=== PATIENT | female | born 1965 | race Two or more races ===

== ENCOUNTER → 2017-06-27 | Outpatient (CLI) | payer OTHER ==
[~2017-06-27] MED LIST: NABUMETONE750 MG PO
== END | disposition home or self-care (01) ==
LOC: MAMO-SONO 10:03
DX: N60.19 Diffuse cystic mastopathy of unspecified breast (principal); Z12.31 Encounter for screening mammogram for malignant neoplasm of breast

== ENCOUNTER → 2017-10-29 | Outpatient (CLI) | payer OTHER | END | disposition home or self-care (01) | LOC: LAB 08:13 | DX: E03.9 Hypothyroidism, unspecified (principal) ==

== ENCOUNTER 2018-01-15 07:16 | Outpatient (CLI) | payer OTHER | END 2018-01-15 08:24 | disposition home or self-care (01) | LOC: LAB 07:16 | DX: M05.79 Rheumatoid arthritis with rheumatoid factor of multiple sites without organ or systems involvement (principal); M15.0 Primary generalized (osteo)arthritis; E78.2 Mixed hyperlipidemia; E03.8 Other specified hypothyroidism ==

== ENCOUNTER 2018-03-26 09:36 | Outpatient (CLI) | payer OTHER | END 2018-03-26 10:08 | disposition home or self-care (01) | LOC: LAB 09:36 | DX: M06.80 Other specified rheumatoid arthritis, unspecified site (principal) ==

== ENCOUNTER 2018-04-01 07:52 | Outpatient (CLI) | payer OTHER | END 2018-04-01 08:41 | disposition home or self-care (01) | LOC: LAB 07:52 | DX: M06.00 Rheumatoid arthritis without rheumatoid factor, unspecified site (principal) ==

== ENCOUNTER 2018-04-05 09:47 | Outpatient (CLI) | payer OTHER ==
[2018-04-06] MEDS ORDERED: SYNTHROID50 MCG (15:47)
[2018-04-06] MEDS ORDERED: METHOTREXATE2.5 MG (15:48)
== END 2018-04-05 09:51 | disposition home or self-care (01) ==
LOC: SONOGRAMA 09:47
DX: R10.2 Pelvic and perineal pain (principal); R10.84 Generalized abdominal pain

== ENCOUNTER 2018-04-06 15:40 | Emergency (ER) | payer OTHER ==
[~2018-04-06] VITALS: Ht 172.7 cm; Wt 86.2 kg
[2018-04-06] MEDS ORDERED: SYNTHROID50 MCG (15:47)
[2018-04-06] MEDS ORDERED: METHOTREXATE2.5 MG (15:48)
== END 2018-04-06 19:27 | disposition home or self-care (01) ==
LOC: ER 15:40
DX: N83.292 Other ovarian cyst, left side (principal); R10.31 Right lower quadrant pain

== ENCOUNTER → 2018-04-26 07:25 | Outpatient (CLI) | payer OTHER ==
[~2018-04-26 07:25] MED LIST changes: +METHOTREXATE2.5 MG; +SYNTHROID50 MCG
== END | disposition home or self-care (01) ==
LOC: LAB 07:25
DX: E03.8 Other specified hypothyroidism (principal); R10.13 Epigastric pain

== ENCOUNTER → 2018-06-18 | Outpatient (CLI) | payer OTHER | END | disposition home or self-care (01) | LOC: LAB 08:11 | DX: M05.79 Rheumatoid arthritis with rheumatoid factor of multiple sites without organ or systems involvement (principal); R10.10 Upper abdominal pain, unspecified; E78.49 Other hyperlipidemia ==

== ENCOUNTER 2018-07-13 08:02 | Emergency (ER) | payer OTHER | END 2018-07-13 13:19 | disposition home or self-care (01) | LOC: ER 08:02 → EMR PED 08:05 → ER 08:05 → EMR PED 13:19 | DX: K52.89 Other specified noninfective gastroenteritis and colitis (principal) ==

== ENCOUNTER 2018-08-05 13:14 | Outpatient (CLI) | payer OTHER | END 2018-08-05 14:32 | disposition home or self-care (01) | LOC: LAB 13:14 | DX: Z11.3 Encounter for screening for infections with a predominantly sexual mode of transmission (principal) ==

== ENCOUNTER 2018-08-22 07:56 | Outpatient (CLI) | payer OTHER | END 2018-08-22 16:03 | disposition home or self-care (01) | LOC: LAB 07:56 | DX: M05.79 Rheumatoid arthritis with rheumatoid factor of multiple sites without organ or systems involvement (principal); M25.50 Pain in unspecified joint; E03.8 Other specified hypothyroidism ==

== ENCOUNTER → 2018-10-10 | Outpatient (CLI) | payer OTHER | END | disposition home or self-care (01) | LOC: LAB 10:04 | DX: Z01.84 Encounter for antibody response examination (principal) ==

== ENCOUNTER 2018-10-15 07:56 | Outpatient (CLI) | payer OTHER | END 2018-10-15 15:00 | disposition home or self-care (01) | LOC: LAB 07:56 | DX: R80.8 Other proteinuria (principal); M25.50 Pain in unspecified joint; M05.79 Rheumatoid arthritis with rheumatoid factor of multiple sites without organ or systems involvement; N39.0 Urinary tract infection, site not specified ==

== ENCOUNTER 2018-10-15 10:53 | Outpatient (CLI) | payer OTHER | END 2018-10-15 17:00 | disposition home or self-care (01) | LOC: SONOGRAMA 10:53 | DX: R80.8 Other proteinuria (principal); M05.79 Rheumatoid arthritis with rheumatoid factor of multiple sites without organ or systems involvement ==

== ENCOUNTER → 2018-10-21 | Outpatient (CLI) | payer OTHER | END | disposition home or self-care (01) | LOC: NUCLEAR 15:23 | DX: I82.409 Acute embolism and thrombosis of unspecified deep veins of unspecified lower extremity (principal) ==

== ENCOUNTER 2018-11-06 15:20 | Outpatient (CLI) | payer OTHER | END 2018-11-06 15:22 | disposition home or self-care (01) | LOC: MRI 15:20 | DX: M54.5 Low back pain (principal); M54.17 Radiculopathy, lumbosacral region | CPT/HCPCS: 72148 ==

== ENCOUNTER → 2018-12-23 11:56 | Outpatient (CLI) | payer OTHER | END | disposition home or self-care (01) | LOC: LAB 11:56 | DX: M05.79 Rheumatoid arthritis with rheumatoid factor of multiple sites without organ or systems involvement (principal); M15.0 Primary generalized (osteo)arthritis; M25.50 Pain in unspecified joint ==

== ENCOUNTER → 2018-12-25 | Outpatient (CLI) | payer OTHER | END | disposition home or self-care (01) | LOC: MRI 12:15 | DX: M54.2 Cervicalgia (principal) | CPT/HCPCS: 72141 ==

== ENCOUNTER 2019-01-29 07:10 | Outpatient (CLI) | payer OTHER | END 2019-01-29 07:43 | disposition home or self-care (01) | LOC: LAB 07:10 | DX: E03.8 Other specified hypothyroidism (principal) ==

== ENCOUNTER → 2019-03-16 | Outpatient (CLI) | payer OTHER | END | disposition home or self-care (01) | LOC: MAMO-SONO 13:28 | DX: Z12.31 Encounter for screening mammogram for malignant neoplasm of breast (principal); Z87.898 Personal history of other specified conditions; Z12.39 Encounter for other screening for malignant neoplasm of breast ==

== ENCOUNTER 2019-03-31 07:04 | Outpatient (CLI) | payer OTHER | END 2019-03-31 14:38 | disposition home or self-care (01) | LOC: LAB 07:04 | DX: M05.79 Rheumatoid arthritis with rheumatoid factor of multiple sites without organ or systems involvement (principal); R10.84 Generalized abdominal pain ==

== ENCOUNTER 2019-06-05 15:57 | Outpatient (CLI) | payer OTHER | END 2019-06-05 16:02 | disposition home or self-care (01) | LOC: LAB 15:57 | DX: E03.8 Other specified hypothyroidism (principal) ==

== ENCOUNTER → 2019-07-27 14:45 | Outpatient (CLI) | payer OTHER | END | disposition home or self-care (01) | LOC: LAB 14:45 | DX: M05.79 Rheumatoid arthritis with rheumatoid factor of multiple sites without organ or systems involvement (principal); M25.50 Pain in unspecified joint; E55.9 Vitamin D deficiency, unspecified ==

== ENCOUNTER 2019-08-03 07:15 | Outpatient (CLI) | payer OTHER | END 2019-08-03 07:25 | disposition home or self-care (01) | LOC: LAB 07:15 | DX: M83.8 Other adult osteomalacia (principal); E03.8 Other specified hypothyroidism ==

== ENCOUNTER 2019-08-10 15:45 | Outpatient (CLI) | payer OTHER | END 2019-08-10 15:49 | disposition home or self-care (01) | LOC: LAB 15:45 | DX: J22 Unspecified acute lower respiratory infection (principal) ==

== ENCOUNTER → 2019-09-17 | Emergency (ER) | payer OTHER ==
[~2019-09-17] VITALS: Ht 172.7 cm; Wt 81.6 kg
[~2019-09-17] MED LIST changes: +HYDROXYCHLOROQ200 MG
== END | disposition home or self-care (01) ==
LOC: ER 15:33
DX: J06.9 Acute upper respiratory infection, unspecified (principal); Z03.818 Encounter for observation for suspected exposure to other biological agents ruled out

== ENCOUNTER → 2019-10-12 17:34 | Outpatient (CLI) | payer OTHER | END | disposition home or self-care (01) | LOC: LAB 17:34 | DX: E03.8 Other specified hypothyroidism (principal) ==

== ENCOUNTER 2019-10-22 07:39 | Outpatient (CLI) | payer OTHER | END 2019-10-22 14:09 | disposition home or self-care (01) | LOC: LAB 07:39 | DX: M05.79 Rheumatoid arthritis with rheumatoid factor of multiple sites without organ or systems involvement (principal); M25.50 Pain in unspecified joint ==

== ENCOUNTER 2019-11-16 09:28 | Outpatient (CLI) | payer OTHER | END 2019-11-16 09:37 | disposition home or self-care (01) | LOC: LAB 09:28 | PROVIDERS: ATTEND General Practice | DX: K92.1 Melena (principal) ==

== ENCOUNTER → 2019-11-18 11:28 | Outpatient (CLI) | payer OTHER | END | disposition home or self-care (01) | LOC: LAB 11:28 | PROVIDERS: ATTEND General Practice | DX: R10.84 Generalized abdominal pain (principal) ==

== ENCOUNTER → 2019-12-01 | Outpatient (CLI) | payer OTHER | END | disposition home or self-care (01) | LOC: RX STUDY 08:00 | PROVIDERS: ATTEND Internal Medicine Gastroenterology | DX: R13.19 Other dysphagia (principal) ==

== ENCOUNTER 2020-01-18 13:15 | Outpatient (CLI) | payer OTHER | END 2020-01-18 15:00 | disposition home or self-care (01) | LOC: LAB 13:15 | DX: R05 Cough (principal) ==

== ENCOUNTER → 2020-01-19 | Outpatient (CLI) | payer OTHER ==
[~2020-01-19] MED LIST changes: +FAMOTIDINE20 MG PO; +FOLIC ACID1 MG PO; +PANTOPRAZOLE SO40 MG PO
== END | disposition home or self-care (01) ==
LOC: TOM 09:00
PROVIDERS: ATTEND Internal Medicine Gastroenterology
DX: R10.84 Generalized abdominal pain (principal); R63.0 Anorexia; R63.4 Abnormal weight loss; K85.90 Acute pancreatitis without necrosis or infection, unspecified

== ENCOUNTER → 2020-01-22 17:36 | Outpatient (CLI) | payer OTHER | END | disposition home or self-care (01) | LOC: LAB 17:36 | PROVIDERS: ATTEND Emergency Medicine Pediatric Emergency Medicine | DX: M32.19 Other organ or system involvement in systemic lupus erythematosus (principal); N39.0 Urinary tract infection, site not specified; M25.50 Pain in unspecified joint ==

== ENCOUNTER 2020-01-22 17:48 | Emergency (ER) | payer OTHER ==
[~2020-01-22] VITALS: Ht 172.7 cm; Wt 74.8 kg
[~2020-01-22 17:48] MED LIST changes: -FAMOTIDINE20 MG PO; -FOLIC ACID1 MG PO; -PANTOPRAZOLE SO40 MG PO
[2020-01-22] MEDS ORDERED: PANTOPRAZOLE SO40 MG PO (17:58)
[2020-01-22] MEDS ORDERED: FAMOTIDINE20 MG PO (17:58)
[2020-01-22] MEDS ORDERED: FOLIC ACID1 MG PO (17:58)
== END 2020-01-22 20:01 | disposition home or self-care (01) ==
LOC: ER 17:48
DX: R07.89 Other chest pain (principal); I31.3 Pericardial effusion (noninflammatory)

== ENCOUNTER 2020-02-10 07:56 | Outpatient (CLI) | payer OTHER ==
[~2020-02-10 07:56] MED LIST changes: +FAMOTIDINE20 MG PO; +FOLIC ACID1 MG PO; +PANTOPRAZOLE SO40 MG PO
== END 2020-02-10 08:02 | disposition home or self-care (01) ==
LOC: LAB 07:56
PROVIDERS: ATTEND General Practice
DX: E03.8 Other specified hypothyroidism (principal); E55.9 Vitamin D deficiency, unspecified

== ENCOUNTER → 2020-02-15 | Outpatient (CLI) | payer OTHER | END | disposition home or self-care (01) | LOC: SONOGRAMA 11:31 → MAMO-SONO 13:45 | PROVIDERS: ATTEND General Practice | DX: E04.1 Nontoxic single thyroid nodule (principal); E03.8 Other specified hypothyroidism ==

== ENCOUNTER → 2020-04-21 08:25 | Outpatient (CLI) | payer OTHER | END | disposition home or self-care (01) | LOC: LAB 08:25 | PROVIDERS: ATTEND General Practice | DX: E03.8 Other specified hypothyroidism (principal) ==

== ENCOUNTER → 2020-05-09 08:44 | Outpatient (CLI) | payer OTHER ==
[~2020-05-09 08:44] MED LIST changes: +IMURAN50 MG PO
== END | disposition home or self-care (01) ==
LOC: LAB 08:44
PROVIDERS: ATTEND General Practice
DX: N39.0 Urinary tract infection, site not specified (principal)

== ENCOUNTER 2020-05-15 15:52 | Emergency (ER) | payer OTHER ==
[~2020-05-15] VITALS: Ht 172.7 cm; Wt 75.3 kg
[~2020-05-15 15:52] MED LIST changes: -IMURAN50 MG PO
[2020-05-15] MEDS ORDERED: IMURAN50 MG PO (17:08)
== END 2020-05-15 20:04 | disposition home or self-care (01) ==
LOC: ER 15:52
DX: N39.0 Urinary tract infection, site not specified (principal)

== ENCOUNTER → 2020-05-16 16:57 | Outpatient (CLI) | payer OTHER ==
[~2020-05-16 16:57] MED LIST changes: +IMURAN50 MG PO
== END | disposition home or self-care (01) ==
LOC: LAB 16:57
PROVIDERS: ATTEND Internal Medicine
DX: R10.10 Upper abdominal pain, unspecified (principal); M05.79 Rheumatoid arthritis with rheumatoid factor of multiple sites without organ or systems involvement; M25.50 Pain in unspecified joint

== ENCOUNTER 2020-05-17 14:23 | Outpatient (CLI) | payer OTHER | END 2020-05-17 15:20 | disposition home or self-care (01) | LOC: PPH VACUNA 14:23 | DX: Z23 Encounter for immunization (principal) ==

== ENCOUNTER → 2020-08-14 | Outpatient (CLI) | payer OTHER | END | disposition home or self-care (01) | LOC: LAB 17:51 | DX: R10.10 Upper abdominal pain, unspecified (principal); M25.759 Osteophyte, unspecified hip; M25.50 Pain in unspecified joint ==

== ENCOUNTER → 2020-09-08 07:59 | Outpatient (CLI) | payer OTHER | END | disposition home or self-care (01) | LOC: LAB 07:59 | PROVIDERS: ATTEND General Practice | DX: E03.9 Hypothyroidism, unspecified (principal) ==

== ENCOUNTER → 2020-12-05 08:00 | Outpatient (CLI) | payer OTHER | END | disposition home or self-care (01) | LOC: LAB 08:00 | DX: M05.79 Rheumatoid arthritis with rheumatoid factor of multiple sites without organ or systems involvement (principal) ==

== ENCOUNTER 2021-01-24 08:00 | Outpatient (CLI) | payer OTHER | END 2021-01-24 08:30 | disposition home or self-care (01) | LOC: PPH VACUNA 08:00 | DX: Z23 Encounter for immunization (principal) ==

== ENCOUNTER 2021-03-07 06:50 | Outpatient (CLI) | payer OTHER | END 2021-03-07 06:57 | disposition home or self-care (01) | LOC: LAB 06:50 | DX: D64.89 Other specified anemias (principal); M05.79 Rheumatoid arthritis with rheumatoid factor of multiple sites without organ or systems involvement; E55.9 Vitamin D deficiency, unspecified ==

== ENCOUNTER → 2021-07-26 07:51 | Outpatient (CLI) | payer OTHER | END | disposition home or self-care (01) | LOC: LAB 07:51 | PROVIDERS: ATTEND General Practice | DX: M05.79 Rheumatoid arthritis with rheumatoid factor of multiple sites without organ or systems involvement (principal) ==

== ENCOUNTER 2021-07-31 10:37 | Outpatient (CLI) | payer OTHER | END 2021-07-31 14:45 | disposition home or self-care (01) | LOC: SONOGRAMA 10:37 | PROVIDERS: ATTEND Internal Medicine Rheumatology | DX: M05.79 Rheumatoid arthritis with rheumatoid factor of multiple sites without organ or systems involvement (principal) ==

== ENCOUNTER 2021-08-29 14:50 | Outpatient (CLI) | payer OTHER | END 2021-08-29 15:03 | disposition home or self-care (01) | LOC: LAB 14:50 | PROVIDERS: ATTEND Emergency Medicine Pediatric Emergency Medicine | DX: Z11.52 Encounter for screening for COVID-19 (principal); J39.9 Disease of upper respiratory tract, unspecified ==

== ENCOUNTER 2021-09-08 14:19 | Outpatient (CLI) | payer OTHER | END 2021-09-08 14:21 | disposition home or self-care (01) | LOC: RAD 14:19 | PROVIDERS: ATTEND Internal Medicine | DX: R05.9 Cough, unspecified (principal); Z00.00 Encounter for general adult medical examination without abnormal findings ==

== ENCOUNTER 2021-10-27 07:41 | Outpatient (CLI) | payer OTHER | END 2021-10-27 07:51 | disposition home or self-care (01) | LOC: LAB 07:41 | PROVIDERS: ATTEND General Practice | DX: M05.79 Rheumatoid arthritis with rheumatoid factor of multiple sites without organ or systems involvement (principal); R10.10 Upper abdominal pain, unspecified ==

== ENCOUNTER 2022-02-14 08:00 | Outpatient (CLI) | payer OTHER | END 2022-02-14 08:05 | disposition home or self-care (01) | LOC: PPH VACUNA 08:00 | PROVIDERS: ATTEND Emergency Medicine Pediatric Emergency Medicine | DX: Z23 Encounter for immunization (principal) ==

== ENCOUNTER 2022-04-20 16:12 | Outpatient (CLI) | payer OTHER | END 2022-04-20 16:27 | disposition home or self-care (01) | LOC: PPH VACUNA 16:12 | PROVIDERS: ATTEND Emergency Medicine Pediatric Emergency Medicine | DX: Z23 Encounter for immunization (principal) ==

== ENCOUNTER → 2022-10-03 | Outpatient (CLI) | payer OTHER | END | disposition home or self-care (01) | LOC: MRI 14:15 | PROVIDERS: ATTEND Internal Medicine Rheumatology | DX: M54.16 Radiculopathy, lumbar region (principal) | CPT/HCPCS: 72148 ==

== ENCOUNTER 2023-06-24 14:40 | Emergency (ER) | payer OTHER ==
[~2023-06-24] VITALS: Ht 172.7 cm; Wt 81.6 kg
[2023-06-24 16:47] LABS: HEMATOCRIT 42.3 % (36.0-45.00); HEMOGLOBIN 14.3 g/dL (12.0-15.00); MEAN CELL VOLUME 97.7 fL (80.00-100.00); MEAN CORPUSCULAR HEMOGLOBIN 33.1 pg (27.00-32.0); MEAN CORPUSCULAR HGB CONC 33.9 g/dl (32.0-36.0); PLATELET COUNT 361 K/uL (150-450); RED BLOOD COUNT 4.33 M/uL (4.00-6.00)
[2023-06-24 17:07] LABS: ALBUMIN 3.9 gm/dL (3.4-5.0); BILIRUBIN TOTAL 0.55 mg/dL (0.3-1.2); CALCIUM 8.9 mg/dL (8.5-10.1); CREATININE SERUM 0.95 mg/dL (0.55-1.02); GFR 60.63; GLOBULINA 3.7 G/DL (2.4-3.5); POTASSIUM 3.87 mEq/L (3.5-5.1); TOTAL PROTEIN 7.6 gm/dL (6.4-8.2)
[2023-06-24 19:02] LABS: PH,URINE 5.5 (5.0-8.0); URINE APPEARANCE Clear; URINE BILIRRUBIN Negative (NEGATIVE); URINE BLOOD Negative; URINE COLOR Yellow; URINE GLUCOSE Negative (NEGATIVE); URINE LEUKOCYTE Negative; URINE NITRATE Negative; URINE PROTEIN Negative (NEGATIVE); URINE UROBILINOGEN 0.2 E.U./dl
[2023-06-24 19:05] LABS: URINE RBC 3.4 uL (0.0-20.8); URINE WBC 1.9 uL (0.0-23.2)
== END 2023-06-24 21:17 | disposition home or self-care (01) ==
LOC: ER 14:40
PROVIDERS: General Practice
DX: K52.89 Other specified noninfective gastroenteritis and colitis (principal); E86.0 Dehydration; Z88.2 Allergy status to sulfonamides; Z88.6 Allergy status to analgesic agent; Z20.822 Contact with and (suspected) exposure to COVID-19

== ENCOUNTER 2023-08-26 17:45 | Emergency (ER) | payer OTHER ==
[~2023-08-26] VITALS: Ht 172.7 cm; Wt 77.1 kg
[2023-08-26] MEDS ORDERED: ELVITEG/COB/EMTRI/TENOFO DISOP 1 UDTAB TABLET PO ONE (18:45)
== END 2023-08-26 19:18 | disposition home or self-care (01) ==
LOC: ER 17:45
DX: S60.352A Superficial foreign body of left thumb, initial encounter (principal); W45.0XXA Nail entering through skin, initial encounter; Y93.89 Activity, other specified; Y92.89 Other specified places as the place of occurrence of the external cause; Z88.2 Allergy status to sulfonamides; Z88.0 Allergy status to penicillin

== ENCOUNTER 2023-12-16 13:32 | Emergency (ER) | payer OTHER ==
[~2023-12-16] VITALS: Ht 172.7 cm; Wt 77.1 kg
[2023-12-16] MEDS ORDERED: RINVOQ ER15 MG PO (13:55)
[2023-12-16 15:10] LABS: HEMATOCRIT 39.1 % (36.0-45.00); HEMOGLOBIN 13.2 g/dL (12.0-15.00); MEAN CELL VOLUME 97.5 fL (80.00-100.00); MEAN CORPUSCULAR HEMOGLOBIN 33.1 pg (27.00-32.0); MEAN CORPUSCULAR HGB CONC 33.9 g/dl (32.0-36.0); PLATELET COUNT 363 K/uL (150-450)
[2023-12-16 15:29] LABS: CALCIUM 8.8 mg/dL (8.5-10.1); CREATININE SERUM 0.77 mg/dL (0.55-1.02); GFR 76.99; POTASSIUM 3.64 mEq/L (3.5-5.1)
[2023-12-16] MEDS ORDERED: PEPCID AC20 MG PO (17:12)
[2023-12-16] MEDS ORDERED: XOPENEX CO1.25 MG/0. IH (17:12)
[2023-12-16] MEDS ORDERED: ONDANSETRON ODT8 MG PO (17:12)
[2023-12-16] MEDS ORDERED: TUSNEL LIQUID178 ML PO (17:12)
== END 2023-12-16 17:49 | disposition home or self-care (01) ==
LOC: ER 13:32
PROVIDERS: General Practice
DX: R07.9 Chest pain, unspecified (principal); J00 Acute nasopharyngitis [common cold]; Z88.0 Allergy status to penicillin; Z88.2 Allergy status to sulfonamides

== ENCOUNTER 2023-12-29 08:18 | Emergency (ER) | payer OTHER ==
[~2023-12-29] VITALS: Ht 172.7 cm; Wt 77.1 kg
[~2023-12-29 08:18] MED LIST changes: +ONDANSETRON ODT8 MG PO; +PEPCID AC20 MG PO; +RINVOQ ER15 MG PO; +TUSNEL LIQUID178 ML PO; +XOPENEX CO1.25 MG/0. IH
[2023-12-29] MEDS ORDERED: TREXALL7.5 MG PO (08:31)
[2023-12-29 09:05] LABS: HEMATOCRIT 40.9 % (36.0-45.00); HEMOGLOBIN 13.7 g/dL (12.0-15.00); MEAN CORPUSCULAR HEMOGLOBIN 32.3 pg (27.00-32.0); MEAN CORPUSCULAR HGB CONC 33.6 g/dl (32.0-36.0); PLATELET COUNT 427 K/uL (150-450); RED BLOOD COUNT 4.26 M/uL (4.00-6.00); RED CELL DISTRIBUTION WIDTH 14.2 % (11.5-14.5)
[2023-12-29 09:32] LABS: ALBUMIN 3.8 gm/dL (3.4-5.0); BILIRUBIN TOTAL 0.27 mg/dL (0.3-1.2); CREATININE SERUM 0.77 mg/dL (0.55-1.02); GFR 76.99; GLOBULINA 3.4 G/DL (2.4-3.5); POTASSIUM 4.33 mEq/L (3.5-5.1); TOTAL PROTEIN 7.2 gm/dL (6.4-8.2)
== END 2023-12-29 11:17 | disposition home or self-care (01) ==
LOC: ER 08:18
PROVIDERS: General Practice
DX: R07.89 Other chest pain (principal); I10 Essential (primary) hypertension; Z88.0 Allergy status to penicillin; Z88.2 Allergy status to sulfonamides

== ENCOUNTER 2025-02-17 11:02 | Outpatient (CLI) | payer OTHER ==
[~2025-02-17 11:02] MED LIST changes: +TREXALL7.5 MG PO
== END 2025-02-17 11:03 | disposition home or self-care (01) ==
LOC: MAMO-SONO 11:02
DX: E03.9 Hypothyroidism, unspecified (principal); E04.2 Nontoxic multinodular goiter; N60.19 Diffuse cystic mastopathy of unspecified breast; Z12.31 Encounter for screening mammogram for malignant neoplasm of breast